=== PATIENT | male | born 1980 | race Caucasian/White ===

== ENCOUNTER 2019-10-29 14:24 | Emergency (ER) | payer OTHER, SELFPAY ==
[2019-10-29 14:50] VITALS: BP 139/90; PULSE 87; RESP 17; TEMP 36.7; O2SAT 98
--- NOTE | 2019-10-29 14:54 | ED.GENADULT ---
HPI - General Adult General Chief complaint: Wound/Laceration Stated complaint: Abscesses from bug bites Time Seen by Provider: 10/29/19 14:30 Source: patient Mode of arrival: ambulatory Limitations: no limitations History of Present Illness HPI narrative: Patient is a 39-year-old male who presents to emergency department for evaluation of wounds to the lower extremities noting history of similar occurrences in the past attributed to bug bites patient is traveling through town notes some mild aching pain of the lesions with redness that is increased.. Patient denies any fever chills nausea vomiting or other complaints Related Data Allergies Allergy/AdvReac Type Severity Reaction Status Date / Time erythromycin base Allergy Difficulty Verified 10/29/19 14:54 Breathing Penicillins Allergy Fever Verified 10/29/19 14:54 Review of Systems Review of Systems: All systems reviewed & are unremarkable except as noted in HPI and below Exam Narrative: Exam Narrative: GENERAL: Well-appearing, well-nourished, and in no acute distress. HEAD: Normocephalic, atraumatic. EYES: PERRLA and EOMI. ENT: Nares clear, no rhinorrhea or epistaxis. Mucous membranes moist. CHEST: Clear to auscultation. No respiratory distress. No wheezes rales or rhonchi HEART: Regular rate and rhythm. No murmur heard. EXTREMITIES: Normal range of motion. No edema. SKIN: Warm, dry, no rash. 2 small wounds to the bilateral lower legs that are ulcerated centrally with some surrounding erythema measuring roughly 2 and half centimeters in diameter each NEURO: No focal deficits. Alert and oriented x3. Neurovascularly intact PSYCH: Normal mood and affect. Course Course Emergency Course: Patient in the room in no distress aware of case findings treatment plan and diagnosis agreeing to follow-up as directed Patient felt appropriate for outpatient reevaluation Vital Signs Vital signs: Vital Signs Temperature 98.1 F 10/29/19 14:50 Pulse Rate 87 10/29/19 14:50 Respiratory Rate 17 10/29/19 14:50 Blood Pressure 139/90 10/29/19 14:50 Pulse Oximetry 98 10/29/19 14:50 Temperature 98.1 F 10/29/19 14:50 Pulse Rate 87 10/29/19 14:50 Respiratory Rate 17 10/29/19 14:50 Blood Pressure 139/90 10/29/19 14:50 Pulse Oximetry 98 10/29/19 14:50 Medical Decision Making MDM Narrative Medical decision making narrative: Patient in the room aware of case findings treatment plan and diagnosis agreeing to follow-up as directed or to return if symptoms worsen or concerns Vital Signs Vital Signs: Vital Signs Temperature 98.1 F 10/29/19 14:50 Pulse Rate 87 10/29/19 14:50 Respiratory Rate 17 10/29/19 14:50 Blood Pressure 139/90 10/29/19 14:50 Pulse Oximetry 98 10/29/19 14:50 Temperature 98.1 F 10/29/19 14:50 Pulse Rate 87 10/29/19 14:50 Respiratory Rate 17 10/29/19 14:50 Blood Pressure 139/90 10/29/19 14:50 Pulse Oximetry 98 10/29/19 14:50 Discharge Plan Discharge Clinical Impression: Cellulitis of left leg Patient Disposition: Home, Self-Care Condition: Stable Instructions: Antibiotic Form, Acute Wounds (ED) Additional Instructions: Follow up with primary care in the next 2-3 days for re-evaluation return if symptoms worsen or concerns, any increase in redness swelling pain or fever over 100.5 Clean wound with mild soapy water. Apply antibiotic ointment and clean dressing at least three times daily Patient education sheet Prescriptions: New cephalexin [Keflex] 500 mg capsule 500 mg PO Q12H 7 Days Qty: 14 RF: 0 chlorhexidine gluconate [Hibiclens] 4 % liquid 1 applic TOPICAL ONCE Qty: 3785 RF: 0 mupirocin 2 % ointment 1 applic TOPICAL TID Qty: 15 RF: 0 Follow-up/Referrals: [facility] [Primary Care Provider] -
[2019-10-29] MEDS: CEPHALEXIN 500 MG CAPSULE PO (15:27)
--- NOTE | 2019-10-30 09:53 | PCCCNOTE ---
Spoke with Kandace at [phone] at [phone]
== END 2019-10-29 15:29 | disposition home or self-care (01) ==
PROVIDERS: Emergency Provider Emergency Medicine
DX: L03.116 Cellulitis of left lower limb (principal); L03.115 Cellulitis of right lower limb
CPT/HCPCS: 99283; A9270